=== PATIENT | female | born 1990 | race Caucasian/White ===

== ENCOUNTER 2016-08-23 05:27 | Emergency (ER) | payer OTHER ==
[~2016-08-23] VITALS: Ht 162.6 cm; Wt 67.0 kg
[2016-08-23 05:31] VITALS: TEMP 36.6; Ht 162.6 cm; Wt 67.0 kg
[2016-08-23] MEDS ORDERED: DOXYCYCLINE HYCLATE 100 MG CAP PO STA (05:41)
[2016-08-23 05:50] VITALS: BP 119/80; PULSE 68; O2SAT 95
--- NOTE | 2016-08-23 06:26 | EMERGENCY ROOM VISIT NOTE ---
ED Visit Note First contact with patient: 05:36 CHIEF COMPLAINT: Tick bite HISTORY OF PRESENT ILLNESS: This 25 year old female patient presents to the emergency department after they noticed a tick embedded in her left calf for the past one day. The patient did not try to remove it. It had been on for less than one day. The patient's tetanus shot is reportedly up-to-date. The patient denies any rashes, fevers, chills, or lightheadedness. The patient denies joint tenderness. REVIEW OF SYSTEMS: A 6 system review of systems was completed with positives and pertinent negatives listed in the HPI. ALLERGIES: Latex MEDICATIONS: No chronic medications PMH: Otherwise healthy SOCIAL HISTORY: Lives locally PHYSICAL EXAM: Vital Signs: Reviewed Nurse's notes, vital signs stable. GENERAL : white female, in no acute distress, well-developed, well-nourished. SKIN: There is deer tick embedded in the patient's left calf. There is a small zone of inflammation and eccymosis around the spot where the tick is. The skin is otherwise clear. NEUROLOGICAL: Alert and oriented to person place and time, cooperative. Sensory and motor functions grossly intact. ED COURSE: I examined the patient. A tick twister was used to remove the tick. The whole head was removed. There was not bleeding. The patient tolerated the procedure well. The area was dressed with bacitracin and a bandage. []The patient was given doxycycline 200 mg p.o. for prophylaxis. The patient was discharged home in good condition. Current/Historical Medications No Active Prescriptions or Reported Meds Allergies Coded Allergies: Latex (Verified Allergy, Unknown, rash, 08/23/16) Vital Signs Date Time Temp Pulse Resp B/P Pulse Ox O2 Delivery O2 Flow Rate FiO2 08/23/16 05:50 68 20 119/80 95 08/23/16 05:31 36.6 68 20 119/80 95 Room Air Medications Administered Medications (Trade) Dose Ordered Sig/Azeem Route Start Time Stop Time Status Last Admin Dose Admin Doxycycline Hyclate (Vibramycin Cap) 200 mg NOW STAT PO 08/23/16 05:41 08/23/16 05:42 DC 08/23/16 05:51 200 MG Departure Information Impression Primary Impression: Tick bite Dispostion Home / Self-Care Condition GOOD Prescriptions No Active Prescriptions or Reported Meds Referrals No Doctor, Assigned (PCP) Forms HOME CARE DOCUMENTATION FORM, IMPORTANT VISIT INFORMATION Patient Instructions My [facility] Additional Instructions You were seen and evaluated today on an emergency basis only. This is not a substitute for, or an effort to provide, complete comprehensive medical care. It is not possible to recognize and treat all injuries or illnesses in a single emergency department visit. For this reason it is recommended that you followup with your primary care physician with any ongoing or persistent symptoms. Take doxycycline 200 mg x1 dose after eating a meal today. You are welcome to return to the emergency department anytime with new, worsening, or concerning symptoms.
== END 2016-08-23 05:50 | disposition home or self-care (01) ==
LOC: C.EDB 05:28
DX: S80.862A Insect bite (nonvenomous), left lower leg, initial encounter (principal); W57.XXXA Bitten or stung by nonvenomous insect and other nonvenomous arthropods, initial encounter

== ENCOUNTER 2016-11-16 18:46 | Emergency (ER) | payer OTHER ==
[~2016-11-16] VITALS: Ht 162.6 cm; Wt 66.4 kg
[2016-11-16 18:49] VITALS: TEMP 36.6; Ht 162.6 cm; Wt 66.4 kg
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
[2016-11-16] MEDS ORDERED: MULTTAB58 PO (19:05)
[2016-11-16] MEDS ORDERED: CYAN10005 PO (19:05)
--- NOTE | 2016-11-16 19:24 | DIAGNOSTIC IMAGING REPORT ---
CT SCAN OF THE BRAIN WITHOUT IV CONTRAST CLINICAL HISTORY: Headache. COMPARISON STUDY CT of the brain dated 01/20/2012. TECHNIQUE: Unenhanced axial CT scan of the brain is performed from the vertex to the skull base. Automated dose control exposure was utilized. A dose lowering technique was utilized adhering to the principles of ALARA. CT DOSE: 537.48 mGy.cm FINDINGS: Brain parenchyma: The brain parenchyma is normal in appearance. There is no hemorrhage, mass effect, or evidence of acute territorial ischemia by CT criteria. Thomas-white matter is preserved. No extra-axial fluid collection is seen. Ventricles, sulci, cisterns: Normal in configuration. Intracranial vasculature: The visualized intracranial vasculature at the skull base is normal in appearance. Calvarium: Unremarkable. Sinuses and mastoids: The visualized paranasal sinuses are clear. The mastoid air cells are well pneumatized. Orbits: The bony orbits are grossly intact. IMPRESSION: No acute intracranial abnormality. Electronically signed by: Wilfredo Carter M.D. 11/16/2016 7:23 PM Dictated Date/Time: 11/16/2016 7:21 PM
[2016-11-16 19:25] LABS: URINE APPEARANCE CLEAR (CLEAR); URINE BILIRUBIN NEG (NEG); URINE COLOR YELLOW; URINE NITRITE NEG (NEG); UROBILINOGEN NEG (NEG); ZZUR CULT IF INDIC CLEAN CATCH NO
[2016-11-16 19:33] LABS: MANUAL MICROSCOPIC REQUIRED? NO; REVIEW REQ? NO
--- NOTE | 2016-11-16 19:58 | DIAGNOSTIC IMAGING REPORT ---
L-SPINE MIN 4 VIEWS ROUTINE CLINICAL HISTORY: 25 years-old Female presenting with low back pain, fall Saturday night. TECHNIQUE: Frontal, bilateral oblique, and lateral views of the lumbar spine and coned and lateral view of the lumbosacral junction were obtained. COMPARISON: None. FINDINGS: Vertebral bodies maintain normal height and alignment. Intervertebral disc spaces preserved. No degenerative change. No radiographic evidence of acute fracture or subluxation. 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 No osseous neural foraminal narrowing. Nonobstructive bowel gas pattern. No gross pneumoperitoneum. Lung bases clear. IMPRESSION: No acute osseous injury of the lumbar spine. Electronically signed by: Zeyad Olivares M.D. 11/16/2016 7:57 PM Dictated Date/Time: 11/16/2016 7:55 PM
[2016-11-16] MEDS ORDERED: ACETAMINOPHEN 500 MG TAB PO ONE (20:24)
[2016-11-16 20:26] VITALS: BP 109/61; PULSE 53; O2SAT 100
== END 2016-11-16 20:26 | disposition home or self-care (01) ==
LOC: C.EDB 18:47
DX: F07.81 Postconcussional syndrome (principal); S39.012A Strain of muscle, fascia and tendon of lower back, initial encounter; W03.XXXA Other fall on same level due to collision with another person, initial encounter; W22.8XXA Striking against or struck by other objects, initial encounter; F17.200 Nicotine dependence, unspecified, uncomplicated; Z82.49 Family history of ischemic heart disease and other diseases of the circulatory system

== ENCOUNTER 2021-06-23 07:51 | Inpatient (IN) ==
[2021-06-23] MEDS ORDERED: OXYTOCIN 30 UNITS/500 ML BAG IV PRN (07:55)
[2021-06-23] MEDS ORDERED: PENICILLIN G POTASSIUM 6 MU in DEXTROSE 5% 250 ML IV STA (08:01)
--- NOTE | 2021-06-23 08:02 | History & Physical Report ---
Date of Service June 23, 2021 Assessment & Plan (1) Post-dates : Plan: Cervical ripening with Cervidil Admission and Anticipated Discharge Date Admission Date: June 23, 2021 History of Present Illness Chief Complaint: induction of labor Primary Care Provider: Ki Eagle MD 30 F P0000 at 40. admitted for induction of labor for post-dates. GBS is poitive. Covid is negative. 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 Review of Systems All systems reviewed & are unremarkable except as noted in HPI & below Physical Exam Constitutional: WD/WN, vitals as above comfortable Eyes: PERRL, conjunctivae normal, anicteric sclerae Respiratory: normal respiratory effort, lungs clear to auscultation Cardiovascular: RRR, no murmur, no edema Skin: no rashes, warm and dry Neurologic: patellar DTR's 2+ bilat, sensation intact Psychiatric: A+Ox3, euthymic affect Genitourinary: no vaginal lesions, no adnexal mass normal external appearance OB Exam Abdomen: + fundal height and + vertex Manual OB Exam: + cervical dilation, + cervical effacement 50% and + station high OB Exam Monitor Tracing: + external FHT monitor used, + external uterine monitor used, + category I and + normal FHT variability cervix closed, posterior, firm Code Status & VTE Plan VTE Prophylaxis Plan VTE Prophylaxis will be ordered: No Monitoring External Monitor Cat 1
[2021-06-23] MEDS ORDERED: DINOPROSTONE 10 MG INSERT PV ONE (08:15)
[2021-06-23] MEDS ORDERED: LACTATED RINGER'S 500 ML IV ONE (08:28)
[2021-06-23 08:51] LABS: Hematocrit (blood only) 34.3 % (37-47); Hemoglobin 11.8 g/dL (12.0-16.0); Mean Corpuscular Hemoglobin 31.5 pg (25-34); Mean Corpuscular Hgb Conc 34.4 g/dL (32-36); Mean Corpuscular Volume 91.5 fL (80-100); Mean Platelet Volume 12.5 fL (7.4-10.4); Platelet Count 119 K/uL (130-400); Platelet Estimate Decreased (Normal); RDW Coefficient of Variation 14.4 % (11.5-14.5); RDW Standard Deviation 48.9 fL (36.4-46.3); Red Blood Count 3.75 M/uL (4.2-5.4); White Blood Count 8.22 K/uL (4.8-10.8)
--- NOTE | 2021-06-23 08:55 | Labor Progress Brief Note ---
Date of Service June 23, 2021 Assessment & Plan Admission and Anticipated Discharge Date Admission Date: June 23, 2021 Physical Exam Genitourinary: Cervidil 10 mg placed vaginally Results & Data ([facility]) Vital Signs (Past 12 Hours) Vital Signs Pulse BP 06/23/21 08:12 123 H 120/68
[2021-06-23] MEDS ORDERED: PENICILLIN G POTASSIUM 3 MU in DEXTROSE 5% 100 ML IV PRN (10:58)
[2021-06-23] MEDS ORDERED: BUTORPHANOL TARTRATE 1 MG/ML VIAL IV PRN (18:37)
[2021-06-23] MEDS: miSOPROStoL 50 MCG TAB PO SCH (23:56)
[2021-06-24] MEDS: miSOPROStoL 50 MCG TAB PO SCH ×2 (01:37→05:15)
--- NOTE | 2021-06-24 09:20 | Labor Progress Brief Note ---
Date of Service June 24, 2021 Subjective Patient comfortable in bed at this time, having slight cramping. Was able eat breakfast. No other concerns at this time Assessment & Plan (1) Post-dates : Plan: Continue Cytotec, 25 mcg sublingually every 4 hours Epidural if patient desires Anticipate (2) Positive GBS test: Plan: Will start penicillin G when in active labor, prior to AROM, or at the start of spontaneous rupture of membranes Plan: Cervical ripening with Cervidil Admission and Anticipated Discharge Date Admission Date: June 23, 2021 Physical Exam Physical Exam: heart tracing: Baseline 130, moderate variability, positive accelerations no decelerations, category 1 tracing Tocometer: Irritable Cervix: 05/14/3 soft and posterior Results & Data ([facility]) Vital Signs (Past 12 Hours) Vital Signs Temp Pulse Resp BP 06/24/21 08:26 36.5 C 18 06/24/21 08:25 83 125/66 06/24/21 03:20 36.7 C 81 18 108/53 L 06/23/21 23:06 36.8 C 81 18 115/54 L
[2021-06-24] MEDS ORDERED: miSOPROStoL 50 MCG TAB SL SCH (09:30)
[2021-06-24] MEDS ORDERED: miSOPROStoL 25 MCG TAB SL SCH (09:45)
[2021-06-24] MEDS: LACTATED RINGER'S 1,000 ML IV PRN ×2 (11:49→15:57)
[2021-06-24] MEDS ORDERED: OXYTOCIN 30 UNITS/500 ML BAG IV PRN (13:35)
--- NOTE | 2021-06-24 13:38 | Labor Progress Brief Note ---
Date of Service June 24, 2021 Subjective Patient comfortable in bed at this time, having slight cramping. No new complaints Assessment & Plan (1) Post-dates : Plan: Start pit for augmentation Epidural if patient desires Anticipate (2) Positive GBS test: Plan: Will start penicillin G when in active labor, prior to AROM, or at the start of spontaneous rupture of membranes Admission and Anticipated Discharge Date Admission Date: June 23, 2021 Physical Exam Physical Exam: heart tracing: Baseline 125, moderate variability, positive accelerations no decelerations, category 1 tracing Tocometer: Irritable Cervix: 40/-3 soft and posterior, membranes swept Results & Data ([facility]) Vital Signs (Past 12 Hours) Vital Signs Temp Pulse Resp BP 06/24/21 11:46 36.6 C 20 06/24/21 11:44 80 117/78 06/24/21 08:26 36.5 C 18 06/24/21 08:25 83 125/66 06/24/21 03:20 36.7 C 81 18 108/53 L
[2021-06-24] MEDS ORDERED: PENICILLIN G POTASSIUM 6 MU in DEXTROSE 5% 250 ML IV STA (17:38)
--- NOTE | 2021-06-24 17:53 | Labor Progress Brief Note ---
Date of Service June 24, 2021 Subjective Patient uncomfortable with contractions, received 1 dose of Stadol, declines epidural at this time Assessment & Plan (1) Post-dates : Plan: Continue oxytocin for augmentation Epidural if patient desires Anticipate (2) Positive GBS test: Plan: Will start penicillin G when in active labor, prior to AROM, or at the start of spontaneous rupture of membranes Admission and Anticipated Discharge Date Admission Date: June 23, 2021 Physical Exam Physical Exam: heart tracing: Baseline 125, moderate variability, positive accelerations no decelerations, category 1 tracing Tocometer: q2-3 min pit at 10 Cervix: deferred Results & Data ([facility]) Vital Signs (Past 12 Hours) Vital Signs Temp Pulse Resp BP 06/24/21 17:06 68 119/69 06/24/21 15:55 77 20 118/66 06/24/21 15:00 36.6 C 85 20 127/60 06/24/21 13:55 96 H 117/75 06/24/21 11:46 36.6 C 20 06/24/21 11:44 80 117/78 06/24/21 08:26 36.5 C 18 06/24/21 08:25 83 125/66
[2021-06-24] MEDS ORDERED: ePHEDrine sulfate 50 MG/ML AMP ONE ×2 (19:06→21:49)
[2021-06-24] MEDS ORDERED: SODIUM CHLORIDE 0.9% INJ 10 ML VIAL ONE (19:06)
[2021-06-24] MEDS ORDERED: fentaNYL citrate 100 MCG/2 ML VIAL ONE (19:07)
[2021-06-24] MEDS ORDERED: BUPIVACAINE 0.25% 30 ML VIAL ONE (19:07)
[2021-06-24] MEDS ORDERED: fentaNYL 2MCG/ML ROPIVACAINE 1.25MG/ML 100 ML BAG EPI ONE (19:07)
[2021-06-24] MEDS ORDERED: ONDANSETRON 4 MG OD TAB PO PRN (19:39)
--- NOTE | 2021-06-24 20:21 | Anesthesiology Consultation ---
Date of Service June 24, 2021 Assessment & Plan Chart Review Chart Review: Acceptable Risk for Labor Epidural Consults Requested none History Height/Weight Height: 5 ft 4 in Weight: 100.698 kg Allergies Allergy/AdvReac Type Severity Reaction Status Date / Time latex Allergy Unknown rash Verified 06/23/21 08:42 Medications Home Medications Medication Instructions Recorded Confirmed Last Taken iron,carbonyl 65 mg-vitamin C 125 1 tab PO BID 06/23/21 06/23/21 06/23/21 06:00 mg tablet,delayed release (Vitron-C) prenat.vits,pau,ryf-vaft-rvldq 1 tab PO DAILY 06/23/21 06/23/21 06/23/21 06:00 Active Medications Generic Name Dose Route Start Last Admin Trade Name Wil PRN Reason Stop Dose Admin Butorphanol Tartrate 1 mg 06/23/21 18:37 06/24/21 17:13 Butorphanol Tartrate 1 Mg/Ml Vial IV 07/23/21 18:36 1 mg Q2R PRN Administration Pain Lactated Ringer's 1,000 mls @ 125 mls/hr 06/23/21 07:55 06/24/21 19:13 Lr IV 06/25/21 07:54 125 mls/hr .Q8H PRN Infusion L&D Protocol Protocol Oxytocin 30 units in 500 mls @ 14 mls/hr 06/24/21 13:35 06/24/21 19:03 Pitocin IV 06/26/21 13:34 0.84 units/hr .Q24H PRN 14 mls/hr Labor Induction/Augmentation Titration Protocol 0.84 UNITS/HR Past Medical History Medical History No pertinent past medical history Social History Smoking Status: Current some day smoker tobacco type: cigarettes Smoking cigarettes per day: 1 Hx Alcohol Use: No Hx Substance Use: No Physical Exam Vital Signs Last Vital Signs Temp 36.6 C 06/24/21 19:12 Pulse 79 06/24/21 20:18 Resp 20 06/24/21 19:12 BP 104/51 L 06/24/21 20:14 Pulse Ox 100 06/24/21 20:18 Testing Laboratory Results 06/23/21 08:12 Blood Type O Positive 06/23/21 08:12 Antibody Screen NEGATIVE 06/23/21 08:12
[2021-06-24] MEDS ORDERED: NALOXONE HCL 0.4 MG/1 ML VIAL/CARP IV PRN ×2 (20:22→22:08)
[2021-06-24] MEDS ORDERED: ePHEDrine sulfate 50 MG/ML AMP IV PRN ×2 (20:22→22:08)
[2021-06-24] MEDS ORDERED: diphenhydrAMINE 50 MG/ML VIAL IV PRN ×2 (20:22→22:08)
[2021-06-24] MEDS ORDERED: NALOXONE HCL 1 MG in SODIUM CHLORIDE 0.9% 1000ML 1,000 ML IV PRN ×2 (20:22→22:08)
[2021-06-24] MEDS ORDERED: fentaNYL 2MCG/ML ROPIVACAINE 1.25MG/ML 100 ML BAG EPI PRN (20:22)
[2021-06-24] MEDS ORDERED: NALBUPHINE HCL INJ 10 MG/ML AMP IV PRN ×2 (20:22→22:08)
--- NOTE | 2021-06-24 20:28 | Labor Progress Brief Note ---
Date of Service June 24, 2021 Subjective Patient comfortable with epidural Assessment & Plan (1) Post-dates : Plan: Stop pit Anticipate (2) Positive GBS test: Plan: Will start penicillin G when in active labor, prior to AROM, or at the start of spontaneous rupture of membranes Plan: Continue IV pen g Admission and Anticipated Discharge Date Admission Date: June 23, 2021 Physical Exam Physical Exam: heart tracing: Baseline 140, moderate variability, no accelerations decelerations approx 2 min, category 2 tracing Tocometer: q2-3 min on pit Cervix: 2.5/60/-3 AROM with blood tinged, no cord felt. IUPC placed, no complications Results & Data ([facility]) Vital Signs (Past 12 Hours) Vital Signs Temp Pulse Resp BP Pulse Ox 06/24/21 20:24 80 104/57 L 06/24/21 20:23 81 99 06/24/21 20:21 75 116/61 06/24/21 20:18 79 100 06/24/21 20:15 85 92 06/24/21 20:14 90 104/51 L 06/24/21 20:13 81 99 06/24/21 20:12 80 103/57 L 06/24/21 20:10 81 105/58 L 06/24/21 20:08 82 107/59 L 100 06/24/21 20:06 81 116/56 L 06/24/21 20:04 83 120/69 06/24/21 20:03 81 99 06/24/21 19:58 91 H 100 06/24/21 19:53 109 H 99 06/24/21 19:48 99 H 96 06/24/21 19:43 75 95 06/24/21 19:38 78 97 06/24/21 19:33 69 97 06/24/21 19:28 71 98 06/24/21 19:23 80 97 06/24/21 19:18 76 97 06/24/21 19:13 71 96 06/24/21 19:12 36.6 C 73 20 124/72 06/24/21 18:03 74 112/61 06/24/21 17:06 68 119/69 06/24/21 15:55 77 20 118/66 06/24/21 15:00 36.6 C 85 20 127/60 06/24/21 13:55 96 H 117/75 06/24/21 11:46 36.6 C 20 06/24/21 11:44 80 117/78
[2021-06-24] MEDS ORDERED: CITRIC ACID/SODIUM CITRATE 15 ML UDC ONE (20:41)
[2021-06-24] MEDS ORDERED: ceFAZolin 2000MG 2,000 MG/15 ML SYR IV ONE (20:45)
[2021-06-24] MEDS ORDERED: AZITHROMYCIN 500 MG in DEXTROSE 5% 250 ML IV ONE (20:50)
[2021-06-24] MEDS ORDERED: ONDANSETRON INJ 2 MG/ML 2 ML VIAL ONE (21:48)
[2021-06-24] MEDS ORDERED: OXYTOCIN 10 UNITS/ML 10ML VIAL ONE (21:48)
[2021-06-24] MEDS ORDERED: LIDOCAINE 2%/EPINEPHRINE 1:200,000 20 ML SDV ONE (21:48)
[2021-06-24] MEDS ORDERED: PHENYLEPHRINE 100MCG/ML 5ML SYR ONE (21:49)
[2021-06-24] MEDS ORDERED: MoRPHine SULFATE PF 1 MG/ML 10 ML AMP/VIAL ONE (21:50)
--- NOTE | 2021-06-24 21:53 | Post Operative Brief Note ---
Immediate Post Op Note v1 Date of Surgery June 24, 2021 Pre & Post Diagnosis IOL for post dates GBS positive NRFHT I identified the patient and participated in the time-out.: Yes Procedure Primary cesaeran section Surgeon Keya Martínez MD, PhD Automatic Line Set Up Mechanic Noble Gupta MD Estimated Blood Loss 800 Findings Consistent with Post-Op Diagnosis A liveborn female at 2124 with tight arm cord on right arm, APGARs 8/9 Fluids 1000 mls Drains Mancilla Catheter Anesthesia Type Labor Epidural Complications None Disposition Accompanied Patient To Recovery: Yes Disposition: Recovery Room
[2021-06-24] MEDS ORDERED: SENNA 8.6 MG TAB PO PRN (21:54)
[2021-06-24] MEDS ORDERED: HYDROCORTISONE ACETATE 25 MG SUPP PR PRN (21:54)
[2021-06-24] MEDS ORDERED: MAGNESIUM HYDROXIDE SUSP 30 ML UDC PO PRN (21:54)
[2021-06-24] MEDS ORDERED: BENZOCAINE 20% AER SPR 82.5 GM CAN EXT PRN (21:54)
--- NOTE | 2021-06-24 21:54 | Discharge Summary ---
Date of Service June 24, 2021 Admission HPI Per Admitting Provider 30 year old at 40 weeks admitted for induction of labor for post-dates. GBS is positive. Covid is negative. Admission Exam (Per Admitting) Constitutional WD/WN, vitals as above Respiratory normal respiratory effort, lungs clear to auscultation Cardiovascular RRR, no murmur, no edema Gastrointestinal (Abdomen) normal bowel sounds, soft, nontender, no hepatosplenomegaly Discharge Data Consultations 06/23/21 07:55 Consult Anesthesiology Stat Procedures Performed Primary LTCS for NRFHT on 06/24/2021 Hospital Course (1) Post-dates : NRFHT, stat C section (2) Positive GBS test: Will start penicillin G when in active labor, prior to AROM, or at the start of spontaneous rupture of membranes Continue IV pen g
[2021-06-24] MEDS ORDERED: OXYTOCIN 30 UNITS in LACTATED RINGER'S 1,000 ML IV SCH (22:00)
[2021-06-24] MEDS ORDERED: LACTATED RINGER'S 1,000 ML IV SCH (22:00)
[2021-06-24] MEDS ORDERED: ONDANSETRON INJ 2 MG/ML 2 ML VIAL IV PRN (22:08)
[2021-06-24] MEDS ORDERED: METOCLOPRAMIDE HCL 10 MG in SODIUM CHLORIDE 0.9% 50 ML IV PRN (22:08)
[2021-06-24] MEDS ORDERED: MoRPHine SULFATE PF 1 MG/ML 10 ML AMP/VIAL INT SPINAL ONE (22:08)
[2021-06-24] MEDS ORDERED: HYDROmorphone INJ 0.5 MG/0.5 ML SYR IV PRN (22:08)
[2021-06-24] MEDS ORDERED: PROMETHAZINE HCL 12.5 MG in SODIUM CHLORIDE 0.9% 50 ML IV PRN (22:08)
[2021-06-24] MEDS ORDERED: LACTATED RINGER'S 500 ML IV PRN (22:08)
[2021-06-24] MEDS ORDERED: NALOXONE HCL 0.08 MG in SYRINGE 1.8 ML IV PRN (22:08)
[2021-06-24] MEDS ORDERED: NO NARCOTICS OR SEDATIVES SCH (22:15)
[2021-06-24] MEDS ORDERED: DC INTRASPINAL MORPHINE SCH (22:15)
[2021-06-24] MEDS ORDERED: SODIUM CHLORIDE 0.9% 1000ML 1,000 ML IV SCH (22:15)
--- NOTE | 2021-06-24 22:15 | Operative Report ---
Post Operative Report Pre & Post Diagnosis 1. 30 year old at 40 3/7 weeks 2. NRFHT 3. GBS positive I identified the patient and participated in the time-out.: Yes Procedure Primary section Surgeon Keya Martínez MD, PhD Electrician'S Helper Noble Gupta MD Estimated Blood Loss 800 Findings Consistent with Post-Op Diagnosis A liveborn female born 2[birth year] with APGARs 8/9 with tight cord wrapped around right arm. Weight 3037g. Cord pH could not be obtained. Fluids 1000 mls Specimens Placenta-hold Drains Mancilla Anesthesia Type Labor Epidural Complications None Disposition Accompanied Patient To Recovery: Yes Disposition: Recovery Room Indications NRFHT Description of Procedure CD Delivery Note History synopsis: Patient is 30 year old who presents at 40 weeks and 2 days for induction of labor for postdates. She received a Cervidil for cervical ripening, and 2 doses of misoprostol 50 mcg p.o. In the morning she was rechecked and found to be 1 cm dilated, she was kamron too much for another dose of Cytotec at that time. Later she was rechecked and found to be almost 2 cm, and oxytocin was started. Patient remained category 1 tracing while being on the oxytocin. When contractions became more painful she received an epidural for pain control. After the epidural she was noted to have a prolonged deceleration for approximately 3 minutes, she was checked and found to be 2-1/2 cm, artificial rupture of membranes was performed and noted blood-tinged fluid, IUPC was placed. Noted recurrent late decelerations, that were unable to be covered with maternal repositioning, oxygenation and fluids. She was counseled for a C- section. At that time oxytocin had been discontinued, and returned to a category 2 tracing. Procedure Summary: section was recommended. Risks, benefits and alternatives were discussed including but not limited to infection, bleeding that may require blood products or hysterectomy for life saving measures, injury to surrounding organs including but not limited to bowel, bladder, ureters, tubes and ovaries and/or the baby. Should injury occur it could require longer/additional surgery to repair. Patient was also counselled about risk of DVT/PE, and injury to during delivery. The patient stated understanding and desired to proceed. All questions were answered posed by patient. Prior to being taken to the OR, 2 grams of cefazolin IV 500 mg of azithromycin IV was administered. The patient was taken to the operating room where regional anesthesia was found to be adequate. She was then prepared and draped in the usual sterile fashion in the dorsal supine position with a leftward tilt displacing the uterus. Mancilla was draining to gravity. SCDs were on bilateral lower extremities. A pfannenstiel skin incision was then made with the scalpel and carried through to the underlying layer of fascia. The fascia was incised in the midline and the incision extended laterally with the Bauman scissors. The superior aspect of the facial incision was then grasped with the Kelly clamps, elevated and the underlying rectus muscles dissected off bluntly. Attention was then turned to the inferior aspect of this incision which in a similar fashion was grasped, elevated with the Kelly clamps and the rectus muscle dissected off bluntly. The rectus muscles were in the midline. The peritoneum identified, grasped with the pick-ups and entered sharply with the Metzenbaum scissors. The peritoneal incision was then extended superiorly and inferiorly with good visualization of the bladder. The bladder blade was inserted and the vesicouterine peritoneum was identified, grasped with the pick-ups, and entered sharply with Metzenbaum scissors. This incision was then extended laterally and the bladder flap created digitally and the bladder blade was reinserted. The lower uterine segment was identified and incised in a transverse fashion with the scalpel. The uterine incision was then extended bluntly laterally. Artificial rupture of membranes demonstrated clear fluid. The bladder blade was removed. The fetus was in cephalic presentation. The infant's head delivered atraumatically. The anterior shoulders were delivered followed by the posterior shoulders then the remainder of the body. The infant's mouth and nose were bulb suctioned. The umbilical cord was clamped times two and cut. The was handed off to the awaiting pediatric staff. A female was delivered weighing 3037 g with APGARS of 8 at 1 minute and 9 at 5 minutes. The was taken to the recovery room for transition. Cord blood was obtained, was unable to obtain cord blood gas. The placenta was removed with gentle traction. 30 units of oxytocin were added to IVF and allowed to run freely. The uterus was exteriorized and cleared of all clots and debris. The uterine incision was inspected and found to be without any extensions and was repaired with 0 Vicryl in a running, locked fashion. A second imbricating layer was performed. Upon inspection, the repaired hysterotomy was found to be hemostatic. The uterus was firm and returned to the abdomen. The gutters were cleared of all clots and debris. The peritoneum was closed with 2-0 Vicryl in a running fashion. The fascia was reapproximated with 0 Vicryl in a running fashion. The subcutaneous layer was closed with 2-0 Vicryl in a running fashion The skin was closed in a subcuticular fashion with 4-0 vicryl. Dermabond and pressure bandage was applied over incision. The patient tolerated the procedure well. Sponge, lap and needle counts were correct x4. The patient was taken to the recovery room in stable condition. I attest to the content of the Intraoperative Record and any orders documented therein. Any exceptions are noted below.
--- NOTE | 2021-06-24 22:31 | Anesthesia Procedure Note ---
Date of Service June 24, 2021 Anesthesia Post Epidural Note Vital Signs Vital Signs: Temp Pulse Resp BP Pulse Ox 36.6 C 91 H 18 136/63 99 06/24/21 22:10 06/24/21 22:28 06/24/21 22:20 06/24/21 22:26 06/24/21 22:28 Pain Intensity Lower Abdomen: Pain Intensity: 2 Notes Mental Status: alert / awake / arousable Nausea / Vomiting: adequately controlled Pain: adequately controlled Airway Patency, RR, SpO2: stable & adequate BP & HR: stable & adequate Hydration State: stable & adequate Neuraxial Anesthesia: was administered and sensory block is resolving Anesthetic Complications: no major complications apparent and Pt Satisfied with anesthetic care Epidural: Removed without complications and With tip intact
--- NOTE | 2021-06-24 22:32 | Anesthesiology Progress Note ---
Date of Service June 24, 2021 Anesthesia Post Procedure Vital Signs Vital Signs: Temp Pulse Resp BP Pulse Ox 06/24/21 22:30 18 06/24/21 22:28 91 H 99 06/24/21 22:26 96 H 136/63 06/24/21 22:25 96 H 166/99 H 06/24/21 22:23 90 98 06/24/21 22:20 18 06/24/21 22:18 93 H 97 06/24/21 22:13 85 96 06/24/21 22:11 78 103/51 L 06/24/21 22:10 36.6 C 18 06/24/21 22:08 85 97 06/24/21 22:04 82 94 06/24/21 22:03 83 113/59 L 94 06/24/21 20:58 92 H 114/60 100 06/24/21 20:54 89 115/64 06/24/21 20:53 86 100 06/24/21 20:52 92 H 110/57 L 06/24/21 20:48 80 122/58 L 100 06/24/21 20:44 70 117/57 L 06/24/21 20:43 75 100 06/24/21 20:39 81 111/65 06/24/21 20:38 82 100 06/24/21 20:34 85 125/73 06/24/21 20:33 82 100 06/24/21 20:29 87 124/65 06/24/21 20:28 81 100 06/24/21 20:24 80 104/57 L 06/24/21 20:23 81 99 06/24/21 20:21 75 116/61 06/24/21 20:18 79 100 06/24/21 20:15 85 92 06/24/21 20:14 90 104/51 L 06/24/21 20:13 81 99 06/24/21 20:12 80 103/57 L 06/24/21 20:10 81 105/58 L 06/24/21 20:08 82 107/59 L 100 06/24/21 20:06 81 116/56 L 06/24/21 20:04 83 120/69 06/24/21 20:03 81 99 06/24/21 19:58 91 H 100 06/24/21 19:53 109 H 99 06/24/21 19:48 99 H 96 03/02/22 19:43 75 95 06/24/21 19:38 78 97 06/24/21 19:33 69 97 06/24/21 19:28 71 98 06/24/21 19:23 80 97 06/24/21 19:18 76 97 06/24/21 19:13 71 96 06/24/21 19:12 36.6 C 73 20 124/72 06/24/21 18:03 74 112/61 06/24/21 17:06 68 119/69 06/24/21 15:55 77 20 118/66 06/24/21 15:00 36.6 C 85 20 127/60 06/24/21 13:55 96 H 117/75 06/24/21 11:46 36.6 C 20 06/24/21 11:44 80 117/78 06/24/21 08:26 36.5 C 18 06/24/21 08:25 83 125/66 06/24/21 03:20 36.7 C 81 18 108/53 L 06/23/21 23:06 36.8 C 81 18 115/54 L Pain Intensity Lower Abdomen: Pain Intensity: 2 Transfer of Care Handoff Completed per policy Notes Mental Status: alert / awake / arousable and participated in evaluation Patient Amnestic to Procedure: Yes Nausea / Vomiting: adequately controlled Pain: adequately controlled Airway Patency, RR, SpO2: stable & adequate BP & HR: stable & adequate Hydration State: stable & adequate Neuraxial Anesthesia: was administered and sensory block is resolving Anesthetic Complications: no major complications apparent
[2021-06-24] MEDS: KETOROLAC 30 MG/ML VIAL IV PRN (22:55)
[2021-06-25 06:42] LABS: Hematocrit (blood only) 32.5 % (37-47); Hemoglobin 10.9 g/dL (12.0-16.0); Mean Corpuscular Hemoglobin 30.7 pg (25-34); Mean Corpuscular Hgb Conc 33.5 g/dL (32-36); Mean Corpuscular Volume 91.5 fL (80-100); Mean Platelet Volume 12.6 fL (7.4-10.4); Platelet Count 113 K/uL (130-400); RDW Coefficient of Variation 14.3 % (11.5-14.5); RDW Standard Deviation 48.3 fL (36.4-46.3); Red Blood Count 3.55 M/uL (4.2-5.4); White Blood Count 14.79 K/uL (4.8-10.8)
[2021-06-25 07:08] LABS: Basophils # (auto) 0.01 K/uL (0-0.2); Basophils % (auto) 0.1 %; Eosinophils # (auto) 0.01 K/uL (0-0.5); Eosinophils % (auto) 0.1 %; Immature Granulocytes # (auto) 0.02 K/uL (0.00-0.02); Immature Granulocytes % (auto) 0.1 %; Lymphocytes # (auto) 1.13 K/uL (1.2-3.4); Lymphocytes % (auto) 7.6 %; Monocytes # (auto) 0.84 K/uL (0.11-0.59); Monocytes % (auto) 5.7 %; Neutrophils # (auto) 12.78 K/uL (1.4-6.5); Neutrophils % (auto) 86.4 %
[2021-06-25] MEDS: KETOROLAC 30 MG/ML VIAL IV PRN (07:44)
[2021-06-25] MEDS: PRENATAL VITAMIN 1 TAB PO SCH (11:16)
[2021-06-25] MEDS: DOCUSATE SODIUM 100 MG CAP PO SCH ×2 (11:16→20:37)
[2021-06-25] MEDS: FERROUS SULFATE 325 MG TAB PO SCH (11:16)
[2021-06-25] MEDS: SIMETHICONE 80 MG CHEW PO SCH ×3 (11:16→20:38)
[2021-06-25] MEDS ORDERED: ONDANSETRON INJ 2 MG/ML 2 ML VIAL IV PRN (16:10)
[2021-06-25] MEDS ORDERED: diphenhydrAMINE 50 MG/ML VIAL IV PRN (16:10)
[2021-06-25] MEDS ORDERED: diphenhydrAMINE Capsule 25 MG CAP PO PRN (16:10)
[2021-06-25] MEDS ORDERED: PROMETHAZINE HCL 25 MG in SODIUM CHLORIDE 0.9% 50 ML IV PRN (16:10)
[2021-06-25] MEDS: IBUPROFEN 600 MG TAB PO PRN ×2 (16:32→21:38)
[2021-06-25] MEDS: oxyCODONE/ACETAMINOPHEN 5mg/325mg TAB PO PRN ×2 (16:33→21:39)
[2021-06-25] MEDS ORDERED: bisacodyL 5 MG TABEC PO SCH (20:00)
[2021-06-26] MEDS: IBUPROFEN 600 MG TAB PO PRN ×4 (04:33→19:56)
[2021-06-26] MEDS: oxyCODONE/ACETAMINOPHEN 5mg/325mg TAB PO PRN ×4 (04:33→19:57)
[2021-06-26 06:28] LABS: Hematocrit (blood only) 28.3 % (37-47); Hemoglobin 9.8 g/dL (12.0-16.0)
--- NOTE | 2021-06-26 07:48 | Obstetrical Progress Note ---
Date of Service June 26, 2021 Assessment & Plan Admission and Anticipated Discharge Date Admission Date: June 23, 2021 Subjective Patient is seen and examined. She feels well, no complaints. Pain is under control with oral meds. Ambulating without dizziness Voiding without difficulty Tolerating regular diet with out N&V Flatus + BM neg Bleeding is minimal No fever/ chills/ CP/ SOB/ N&V/ Leg pain Breast and bottle feeding without problems Vital Signs Temp Pulse Resp BP Pulse Ox 06/26/21 04:30 36.3 C L 96 H 18 102/67 96 06/25/21 23:30 36.4 C L 96 H 18 99/65 L 95 06/25/21 20:30 36.7 C 97 H 18 104/66 97 06/25/21 16:30 36.9 C 100 H 18 111/70 99 06/25/21 15:00 18 99 06/25/21 14:00 18 97 06/25/21 13:00 20 98 06/25/21 12:00 20 97 06/25/21 11:00 36.6 C 80 20 106/69 98 06/25/21 10:30 20 97 06/25/21 09:30 18 96 06/25/21 08:30 20 98 Lab Results 06/23/21 06/23/21 06/25/21 Range/Units 08:12 08:12 06:06 WBC 8.22 14.79 H (4.8-10.8) K/uL RBC 3.75 L 3.55 L (4.2-5.4) M/uL Hgb 11.8 L 10.9 L (12.0-16.0) g/dL Hct 34.3 L 32.5 L (37-47) % MCV 91.5 91.5 (80-100) fL MCH 31.5 30.7 (25-34) pg MCHC 34.4 33.5 (32-36) g/dL RDW Std Deviation 48.9 H 48.3 H (36.4-46.3) fL RDW Coeff of Catherine 14.4 14.3 (11.5-14.5) % Plt Count 119 L 113 L (130-400) K/uL MPV 12.5 H 12.6 H (7.4-10.4) fL Immature Gran % (Auto) 0.1 % Neut % (Auto) 86.4 % Lymph % (Auto) 7.6 % [place] % (Auto) 5.7 % Eos % (Auto) 0.1 % Baso % (Auto) 0.1 % Neut # (Auto) 12.78 H (1.4-6.5) K/uL Lymph # (Auto) 1.13 L (1.2-3.4) K/uL [place] # (Auto) 0.84 H (0.11-0.59) K/uL Eos # (Auto) 0.01 (0-0.5) K/uL Baso # (Auto) 0.01 (0-0.2) K/uL Immature Gran # (Auto) 0.02 (0.00-0.02) K/uL Platelet Estimate Decreased L (Normal) Blood Type O Positive Antibody Screen NEGATIVE 06/26/21 Range/Units 06:07 WBC (4.8-10.8) K/uL RBC (4.2-5.4) M/uL Hgb 9.8 L (12.0-16.0) g/dL Hct 28.3 L (37-47) % MCV (80-100) fL MCH (25-34) pg MCHC (32-36) g/dL RDW Std Deviation (36.4-46.3) fL RDW Coeff of Catherine (11.5-14.5) % Plt Count (130-400) K/uL MPV (7.4-10.4) fL Immature Gran % (Auto) % Neut % (Auto) % Lymph % (Auto) % [place] % (Auto) % Eos % (Auto) % Baso % (Auto) % Neut # (Auto) (1.4-6.5) K/uL Lymph # (Auto) (1.2-3.4) K/uL [place] # (Auto) (0.11-0.59) K/uL Eos # (Auto) (0-0.5) K/uL Baso # (Auto) (0-0.2) K/uL Immature Gran # (Auto) (0.00-0.02) K/uL Platelet Estimate (Normal) Blood Type Antibody Screen PE: General: Alert, orientedx3, NAD CVS: S1S2 RRR Lungs; CTAB Abd: soft, NT, ND, BS+, fundus firm, below Umbilicus Incision: Clean, dry, intact Perineum intact, Lochia rubra minimal Ext; NT, no edema AP: 30 yo s/p C Section, pod# 2 VSS Afebrile doing well Desires d/c tonight Continue routine postop care Encourage ambulation, PO intake All questions were answered D/C home , f/u in office Results & Data ([facility]) Vital Signs (Past 12 Hours) Vital Signs Temp Pulse Resp BP Pulse Ox 06/26/21 04:30 36.3 C L 96 H 18 102/67 96 06/25/21 23:30 36.4 C L 96 H 18 99/65 L 95 06/25/21 20:30 36.7 C 97 H 18 104/66 97
[2021-06-26] MEDS: DOCUSATE SODIUM 100 MG CAP PO SCH ×2 (07:58→19:57)
[2021-06-26] MEDS: SIMETHICONE 80 MG CHEW PO SCH ×4 (07:58→19:56)
[2021-06-26] MEDS: PRENATAL VITAMIN 1 TAB PO SCH (07:58)
[2021-06-26] MEDS: FERROUS SULFATE 325 MG TAB PO SCH (07:58)
[2021-06-26] MEDS ORDERED: bisacodyL 10 MG SUPP PR PRN (21:54)
== END 2021-06-26 22:30 | disposition home or self-care (01) | DRG 788 ==
LOC: 4S1 07:51 → 4S2 06-25 01:04

== ENCOUNTER 2024-04-13 05:31 | Inpatient (IN) ==
--- NOTE | 2024-04-06 13:41 | Anesthesiology Consultation ---
Date of Service April 06, 2024 Assessment & Plan (1) Encounter for pre-operative examination: - Per power wheelchair mechanic on 04/06/24: No known infectious disease contacts, current infectious disease symptoms in past 10 days or COVID positive test result in the past 30 days. Chart Review Chart Review: data entry specialist initiated History Surgery Operation Date: 04/13/24 07:30 Proposed Procedures p Repeat Section in LD - Issac Gupta MD Height/Weight Height: 5 ft 4 in Weight: 102.058 kg Allergies Allergy/AdvReac Type Severity Reaction Status Date / Time latex Allergy Unknown rash Verified 04/06/24 13:14 Medications Home Medications Medication Instructions Recorded Confirmed Last Taken iron,carbonyl 65 mg-vitamin C 125 1 tab PO BID #60 tabs 06/26/21 04/06/24 Unknown mg tablet,delayed release (Vitron-C) vits no.124-ferrous fum 1 tab PO DAILY 04/06/24 04/06/24 Unknown 27 mg iron-folic acid 800 mcg tablet ( Vitamin) Past Medical History Medical History (Updated 04/06/24 @ 13:39 by Alisa Enriquez PA-C) History of anemia "told her blood count was a little low" History of COVID-19 06/2020 and 11/2023, no residual symptoms Nausea and vomiting after administration of anesthetic agent as a child Postconcussive syndrome pt stated she was unsure about this, but does know that she had gotten a concussion from a fall ~age 23, but has no residual effects from it Past Surgical History Surgical History History of surgery on arm cyst removal, as a child Hx of section 2021 Hx of LASIK Hx of tonsillectomy age 14, admitted for 3 days after for bleeding Social History Smoking Status: Former smoker tobacco type: cigarettes Smoking cigarettes per day: 1 Do You Dip or Chew Tobacco: No Smoking End Date: 2022 Hx Alcohol Use: No Hx Substance Use: No substance use type: does not use
[2024-04-13 06:28] LABS: Hematocrit (blood only) 33.1 % (37.0-47.0); Hemoglobin 11.5 g/dl (12.0-16.0); Mean Corpuscular Hgb Conc 34.7 g/dL (32.0-36.0); Mean Corpuscular Volume 89.2 fL (80.0-100.0); Mean Platelet Volume 11.7 fL (9.4-12.4); Platelet Count 113 K/uL (130-400); RDW Coefficient of Variation 13.8 % (11.5-14.5); RDW Standard Deviation 44.8 fL (36.4-46.3); Red Blood Count 3.71 M/uL (4.20-5.40); White Blood Count 9.79 K/ul (4.8-10.8)
[2024-04-13] MEDS ORDERED: SODIUM CHLORIDE 0.9% 50 ML IV PRN (06:41)
[2024-04-13] MEDS ORDERED: SODIUM CHLORIDE 0.9% 100 ML IV PRN (06:41)
[2024-04-13] MEDS ORDERED: ONDANSETRON INJ 2 MG/ML 2 ML VIAL ONE (06:42)
[2024-04-13] MEDS ORDERED: MoRPHine SULFATE PF 1 MG/ML 10 ML AMP/VIAL ONE (06:42)
[2024-04-13] MEDS ORDERED: DEXAMETHASONE SOD INJ 4 MG/ML VIAL ONE (06:42)
[2024-04-13] MEDS ORDERED: fentaNYL citrate PF 100 MCG/2 ML VIAL ONE (06:42)
[2024-04-13] MEDS ORDERED: OXYTOCIN 10 UNITS/ML VIAL ONE (06:42)
[2024-04-13] MEDS: ACETAMINOPHEN 500 MG TAB PO SCH (06:43)
[2024-04-13] MEDS ORDERED: PHENYLEPHRINE HCL 25 MG/250 ML NSS IV ONE (06:43)
[2024-04-13] MEDS ORDERED: SODIUM CHLORIDE 0.9% 1,000 ML IV SCH ×2 (06:45→09:30)
[2024-04-13] MEDS: SODIUM CHLORIDE 0.9% 1,000 ML IV SCH (06:45)
[2024-04-13] MEDS ORDERED: NALBUPHINE HCL INJ 10 MG/ML AMP IV PRN (07:06)
[2024-04-13] MEDS ORDERED: ONDANSETRON INJ 2 MG/ML 2 ML VIAL IV PRN ×2 (07:06→09:30)
[2024-04-13] MEDS ORDERED: NALOXONE HCL 0.08 MG in SYRINGE 1.8 ML IV PRN (07:06)
[2024-04-13] MEDS ORDERED: MoRPHine SULFATE PF 1 MG/ML 10 ML AMP/VIAL INT SPINAL ONE (07:06)
[2024-04-13] MEDS ORDERED: diphenhydrAMINE 50 MG/ML VIAL IV PRN ×2 (07:06→09:30)
[2024-04-13] MEDS ORDERED: NALOXONE HCL 1 MG in SODIUM CHLORIDE 0.9% 1,000 ML IV PRN (07:06)
[2024-04-13] MEDS ORDERED: HYDROmorphone INJ 0.5 MG/0.5 ML SYR IV PRN ×2 (07:06→09:30)
[2024-04-13] MEDS ORDERED: MoRPHine SULFATE 2 MG/ML CARP IV PRN (07:06)
[2024-04-13] MEDS ORDERED: NALOXONE HCL 0.4 MG/1 ML VIAL/CARP IV PRN (07:06)
[2024-04-13] MEDS ORDERED: ePHEDrine sulfate 50 MG/ML AMP IV PRN (07:06)
[2024-04-13] MEDS: ceFAZolin 2000MG 2,000 MG/15 ML SYR IV SCH (07:12)
[2024-04-13] MEDS ORDERED: DC INTRASPINAL MORPHINE SCH (07:15)
[2024-04-13] MEDS ORDERED: NO NARCOTICS OR SEDATIVES SCH (07:15)
[2024-04-13] MEDS: CITRIC ACID/SODIUM CITRATE 15 ML UDC PO SCH (07:16)
--- NOTE | 2024-04-13 07:51 | History & Physical Bridge Note ---
Date of Service April 13, 2024 History & Physical Bridge Note I have examined the patient, reviewed the History & Physical and in the interval since the performance of the History & Physical I have noted the following changes of clinical significance: no changes noted
[2024-04-13] MEDS ORDERED: PHENYLEPHRINE 100MCG/ML 5ML SYR ONE (08:21)
[2024-04-13] MEDS ORDERED: ceFAZolin 330 MG/ML 1 GM VIAL ONE (08:21)
[2024-04-13] MEDS ORDERED: METHYLERGONOVINE MALEATE 0.2 MG/ML AMP ONE (08:35)
[2024-04-13 09:03] LABS: Base Excess Cord Venous Blood -2.7 mEq/L (-7.7-1.9); Cord Venous Blood HCO3 25 mmol/L (18.4-26.8); Cord Venous Blood PCO2 51 mmHg (30.4-57.2); Cord Venous Blood PO2 24 mmHg (14.1-43.3); Cord Venous Blood pH 7.29 (7.20-7.44); O2 Saturation Cord Venous Bld < 60.0 % (<68)
[2024-04-13 09:04] LABS: Base Excess Cord Arterial Bld -5.9 mEq/L (-9-1.8); CO2 Cord Arterial Blood 75 mmHg (39.1-73.5); HCO3 Cord Arterial Blood 25 mmol/L (19.7-28.5); Oxygen Sat Cord Arterial Blood < 60.0 % (<60); PO2 Cord Arterial Blood < 20 mmHg (4.1-31.7); pH Cord Arterial Blood 7.13 (7.1-7.38)
[2024-04-13] MEDS ORDERED: OXYTOCIN 10 UNITS/ML 10ML VIAL IM ONE (09:15)
[2024-04-13] MEDS ORDERED: diphenhydrAMINE Capsule 25 MG CAP PO PRN (09:30)
[2024-04-13] MEDS ORDERED: MAGNESIUM HYDROXIDE SUSP 30 ML UDC PO PRN (09:30)
[2024-04-13] MEDS ORDERED: BENZOCAINE 20% SPRY 85 APPLN/85 GM CAN EXT PRN (09:30)
[2024-04-13] MEDS ORDERED: DIPHTHER/TETAN/PERTUS Vaccine (Tdap, Adol/Adult) 0.5mL IM ONE (09:30)
[2024-04-13] MEDS ORDERED: SENNA 8.6 MG TAB PO PRN (09:30)
[2024-04-13] MEDS: KETOROLAC 30 MG/ML VIAL ONE (09:30)
[2024-04-13] MEDS ORDERED: HYDROCORTISONE ACETATE 25 MG SUPP PR PRN (09:30)
[2024-04-13] MEDS ORDERED: CALCIUM CARBONATE 500 MG CHEWABLE TAB PO PRN (09:30)
[2024-04-13] MEDS ORDERED: KETOROLAC 30 MG/ML VIAL IV SCH (09:30)
--- NOTE | 2024-04-13 10:10 | Anesthesiology Progress Note ---
Date of Service April 13, 2024 Anesthesia Post Procedure Vital Signs Vital Signs: Temp Pulse Resp BP Pulse Ox 04/13/24 10:06 81 97 04/13/24 10:04 36.7 C 18 04/13/24 10:01 108 H 133/62 94 04/13/24 09:57 73 102/57 L 04/13/24 09:56 73 97 04/13/24 09:51 84 99 04/13/24 09:46 84 98 04/13/24 09:41 96 04/13/24 09:41 102 H 04/13/24 09:41 103 H 117/74 04/13/24 09:36 79 98 04/13/24 09:31 78 98 04/13/24 09:30 36.7 C 16 04/13/24 09:27 86 113/56 L 04/13/24 09:26 95 H 98 04/13/24 07:45 16 04/13/24 07:45 36.6 C 16 04/13/24 07:09 81 122/69 04/13/24 06:02 36.5 C 18 04/13/24 05:45 80 117/71 Transfer of Care Handoff Completed per policy Notes Mental Status: alert / awake / arousable and participated in evaluation Patient Amnestic to Procedure: Yes Nausea / Vomiting: adequately controlled Pain: adequately controlled Airway Patency, RR, SpO2: stable & adequate BP & HR: stable & adequate Hydration State: stable & adequate Neuraxial Anesthesia: was administered and sensory block is resolving Anesthetic Complications: no major complications apparent and Pt Satisfied with anesthetic care
--- NOTE | 2024-04-13 10:13 | Operative Report ---
Post Operative Report Pre & Post Diagnosis Operation Date: 04/13/24 07:30 Pre-Op Diagnosis: Prior section. Desires repeat section. Post-Op Diagnosis: Prior section. Desires repeat section. Delivery of live female child at 0832. I identified the patient and participated in the time-out.: Yes Procedure Operation Date: 04/13/24 07:30 Actual Procedures p Repeat Section, lower transverse uterine incision, delivery of live female child at 0832 - Issac Gupta MD Surgeon Issac Gupta MD Vocational Examiner [place] Estimated Blood Loss 1,090 (QBL) Findings Consistent with Post-Op Diagnosis Nml female escutcheon. Nml gravid uterus and tubes. Moderate adhesions Fluids QBL; 1090ml IVF; 1600ml Urine; 100ml Specimens Placenta and cord gasses Drains none Anesthesia Type Spinal Complications none Indications Prior c/sec pt request Repeat c/sec Description of Procedure Patient brought to the operating room Prepped and draped in normal sterile fashion in dorsal supine position with a leftward tilt. Time out is performed. Patient is identified by name and date of . Allergy and antibiotics and reviewed and confirmed. Skin check is performed to see if anesthesia is adequate A Pfannenstiel incision is made and carried out to the fascia with a scalpel. Fascia is incised in the midline extended laterally on both sides with Bauman scissors. Kelly's were used to grab the superior part of the fascial incision and the rectus abdominis muscle dissected with Bauman scissors.. Same procedure was performed on the lower section of the fascia. The rectus muscle is then in the midline and the peritoneum identified, tented up and entered sharply with the Metzenbaum scissors. The peritoneal incision was then extended superiorly and inferiorly with good visualization of the bladder. An Miguelito retractor was then inserted to provide better visualization and retraction. Vesicouterine peritoneum was identified, grasped with pickups and entered sharply with Metzenbaum scissors. The incision was then extended laterally and the bladder flap created with Metzenbaum scissors. The lower uterine segment incision was performed in a transverse fashion with a scalpel. Uterine incision was then extended laterally with the bandage scissors. Amniotomy is performed. Amniotic fluid is clear The infant's head was delivered atraumatically. There is no nuchal cord. Nose and mouth suctioned with the bulb suction. Delayed cord clamping performed and cord is then clamped and cut and is handed over to the waiting pediatric team. Cord blood and gases obtained The placenta is then removed manually the uterus is exteriorized and cleared of all clots and debris. Uterine incision it repaired with 0-Vicryl in a locking fashion. A second layer of 0-Vicryl is used to obtain excellent hemostasis. Uterus is placed back into the abdominal cavity. The bladder flap was repaired in a running fashion with plain suture. Copious amount of irrigation was used to irrigate the abdomen. Gutters were cleared of all clots and debris . Hemostasis was obtained. The Miguelito retractor is removed as well as sponges or instruments in the abdomen. The peritoneum was identified and closed in a running fashion using plain suture. The rectus abdominis muscle was examined to ensure there no bleeding. Fascia is closed together using 0- Vicryl suture. Subcutaneous space is irrigated and hemostasis was confirmed. Subcutaneous space is approximated with plain suture. Skin is closed with [place]. The patient tolerated procedure well sponge just labs needle counts were correct x2 patient is sent to recovery in stable condition I attest to the content of the Intraoperative Record and any orders documented therein. Any exceptions are noted below. Vocational Examiner was necessary for retraction and manipulation of instruments in order to provide for a safe operation
[2024-04-13] MEDS: PROMETHAZINE 12.5 MG/50.5 ML BAG IV PRN (10:27)
[2024-04-13] MEDS: OXYTOCIN 20 UNITS/LR 1,002 ML IV SCH (11:30)
--- OUTSIDE RECORDS SUMMARY | 2024-04-13 11:52 | External Medical Summary | Summary of Care ---
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 Name Role Phone Unavailable Primary Care Provider Unavailabl e Reason for Visit * Reason Comments Return Visit Encounter Details Date Type Department Care Team (Late st Contact Info) Description 04/09/2024 12:00 PM EST Office Visit Gynecology/Obstetric s [address] [place] [address] Chastity Smith CRNP [address] [place] [address] Normal in third trimester*; Obesity in , antepartum; Previous delivery, antepartum condition or complication Allergies Active Allergy Reactions Criticality Noted Date Comments Latex Rash 04/15/2014 documented as of this encounter (statuses as of 04/09/2024) Medications Adult Gummy/DHA/FA 0.4-25 MG Oral Tablet Chewable Take by mouth. Active Iron 325 (65 Fe) MG Oral Tablet Take by mouth. Active documented as of this encounter (statuses as of 04/09/2024) Active Problems Problem Noted Date Diagnosed Date Normal 09/12/2023 Obesity in , antepartum 09/12/2023 Overview (10/11/2023): Class 1 The patient's pre-gravid BMI is 30.88. Early GTT normal Previous delivery, antepartum condition or complication 09/12/2023 Tobacco use disorder 07/31/2013 Estimated Date of Delivery Comme nts Yes 04/20/2024 Based on last me nstrual period of 07/15/2023 documented as of this encounter (statuses as of 04/09/2024) Resolved Problems Problem Noted Date Diagnosed Date Resolved Date Carrier of group B Streptococcus 06/03/2021 07/03/2021 Antepartum anemia complicating 03/31/2021 07/03/2021 Supervision of normal first , antepartum 11/10/2020 07/03/2021 Contraception 07/14/2016 12/21/2016 Overview (07/14/2016): Nexplanon caused sadness. Condoms now. Neck pain 05/06/2015 06/14/2018 Contraceptive surveillance 12/08/2011 0 06/08/2021 Chronic rhinitis 03/24/2004 06/14/2018 Routine child health exam 02/16/2002 Thunderclap headache 019 documented as of this encounter (statuses as of 04/09/2024) Immunizations Name Administration Dates Next Due HPV Vaccine, 4-Valent 06/14/2007,02/06/2007,11/23 Meningococcal Conjugate Vacc ine (Menactra/Menveo) 05/19/2011 Pneumococcal Polysaccharide PPV23 (Pneumovax) 07/31/2013 Seasonal Influenza Vac., MDV , IM, 0.5 mL (Fluzone) 01/23/2015,02/08/2014,03/09/2013,01/27,03/25/2010,02/07/2007 Seasonal Influenza, PF, 6 M & above, IM , (FluLaval or Fluzone) 06/01/2020 Seasonal Influenza, Quadriva lent, No Preserve, IM 03/09/2023,02/24/2019,02/23/2018,03/09 TDAP, Age 7 and older, IM (Adacel) 02/13/2024, Varicella Vaccine (Chicken Pox) 06/25/2008 documented as of this encounter Social History Tobacco Use Types Packs/Day Years Used Date Smoking Tobacco: Former Cigarettes 0.2 5 Smokeless Tobacco: Never Comments:5 per day Alcohol Use Standard Drinks/Week Comments Not Currently 0 (1 standard drink = 0.6 oz pur e alcohol) occ PHQ-2 Answer Date Recorded PHQ-2 Score 0 09/01/2018 Hunger Vital Sign Answer Date Recorded Within the past 12 months, y ou worried that your food would run out before you got the money to buy more. Never true 09/12/19 24 Within the past 12 months, t he food you bought just didn't last and you didn't have money to get more. Never true 09/12/2023 Velarde Depression Scale Answer Date Recorded Velarde Depression Scale Total 5 09/12/2023 The thought of harming myself has occurred to me . Never 09/12/2023 Childcare Answer Date Recorded Do you feel overwhelmed with taking care of a child, family member or friend? No 09/12/2023 Does your family need help f inding childcare? (Household - for ages 0-17 years) Not on file 09/12/2023 Clothing Answer Date Recorded Have you been unable to get clothing when it was really needed? No 09/12/2023 Is your family able to get c lothes or diapers when needed? (Household - for ages 0-17 years) Not on file 09/12/2023 Personal Safety Answer Date Recorded Do you feel unsafe or have concerns for your saf ety? No 09/12/2023 Do you have concerns for you r family's safety? (Household - for ages 0-17 years) Not on file 09/12/2023 Utilities Answer Date Recorded Do you have trouble paying y our heating, water, or electric bill? No 09/12/2023 Is your family able to pay t he heat, water, or electric bill? (Household - for ages 0-17 years) Not on file 09/12/2023 Does your family have access to good internet? (Household - for ages 0-17 years) Not on file 09/12/2023 Employment Status Answer Date Recorded Are you unemployed or without regular income? No 09/12/2023 Does the household have a re gular source of income? (Household - for ages 0-17 years) Not on file 09/12/2023 Social Connections Answer Date Recorded How often do you feel lonely or isolated from th ose around you? Never 09/12/2023 Financial Resource Strain Answer Date R ecorded Do you have any trouble payi ng for your medications, or do you think you might in the future? No 09/12/2023 Does your family have troubl e paying for medicine? (Household - for ages 0-17 years) Not on file 09/12/2023 Transportation Needs Answer Date Record ed READ ONLY Do you have troubl e getting a ride to medical visits or work? Never True 09/12/2023 Does your family have a hard time getting a ride to doctors visits? (Household - for ages 0-17 years) Not on file 09/12/2023 Has lack of transportation k ept you from medical appointments, meetings, work, or from getting things needed for daily living? Check all that apply. (Adult - for ages 18 years and over) Not on file 09/12/2023 Do you (or your family) have trouble finding or paying for a ride (transportation)? (Household - for ages 0-17 years) Not on file 09/12/2023 Housing Stability Answer Date Recorded Do you currently live in a s helter or have no steady place to sleep at night? No 09/12/2023 READ ONLY Do you think you a re at risk of becoming homeless? No 09/12/2023 Does your family worry about paying for your home or becoming homeless? (Household - for ages 0-17 years) Not on file 0 09/12/2023 Are you homeless or worried that you might be in the future? (Adult - for ages 18 years and over) Not on file Are you (or your family) eugenia eless or worried that you might be in the future? (Household - for ages 0-17 years) Not on file Food Insecurity Answer Date Recorded Do you need food for this week? No 09/12/2023 Are you able to get enough f ood for your family? (Household - for ages 0-17 years) Not on file 09/12/2023 Does your family need food t his week? (Household - for ages 0-17 years) Not on file 09/12/2023 Do you always have enough fo od for your family? (Household - for ages 0-17 years) Not on file 09/12/2023 Estimated Date of Delivery Comme nts Yes 04/20/2024 Based on last me nstrual period of 07/15/2023 Sex and Gender Information Value Date Recorded Sex Assigned at Female 09/12/2023 9:39 AM EDT Legal Sex Female 6:04 AM EST Gender Identity Female 09/12/2023 9:39 AM EDT Sexual Orientation Straight 09/12/2023 9: 39 AM EDT documented as of this encounter Last Filed Vital Signs Vital Sign Reading Time Taken Comments Blood Pressure 126/70 04/09/2024 12:07 PM EST Pulse - - Temperature - - Respiratory Rate - - Oxygen Saturation - - Inhaled Oxygen Concentration - - Weight 103.4 kg (228 lb) 04/09/2024 12:07 PM EST Height 162.6 cm (5' 4") 04/09/2024 12:07 PM EST Body Mass Index 39.14 04/09/2024 12:07 PM EST documented in this encounter Progress Notes * Chastity Smith CRNP - 04/09/2024 12:16 PM EST 38w3d Was at L&D yesterday evening with concerns of HTN. BP at home was high. Was fine at the hospital. She reports NST was done and fine as well. Prior to her trip to L&D she noticed a gush of fluid after getting out of the bathtub. She has not had any change in vaginal discharge since then. Not changing clothing, not wearing a pad. Discussed this was likely bath water, not amniotic fluid. She states that baby has never moved a lot, though no difference today from her baseline. Denies bleeding. Has c/s on Tuesday. ONEYDA Barkley documented in this encounter Nursing Notes * Adrianna Watters LPN - 04/09/2024 12:02 PM EST 38w3d Was in er and L&D yesterday [place] funny BP was high Pt would like cervix checked Pt felt a gush yesterday after getting out of tub and told er pt was not checked at hospital documented in this encounter Plan of Treatment Upcoming Encounters Date Type Department Care Team (Late st Contact Info) Description 04/20/2024 1:00 PM EST Office Visit Gynecology/Obstetrics Brenda Dahl [address] [place] [id number] Issac Gupta MD [address] [place] [id number] Health Maintenance Due Date Last Done Comments Depression Screening 09/02/2019 09/01/2018 HPV/Co-Test 2022 COVID-19 Vaccine ( season) 2023 09/18/2020, 08/23/2020 Influenza Vaccine (FLU shot) (#1) 2023 03/09/2023, 06/01/2020, 06/01/2020, Additional history exists Cervical Cancer Screening 08/03/2024 Pap Smear 08/03/2024 08/03/2021, 07/24, 04/28/2015, Additional history exists DTap/Tdap Vaccines (9 - Td or Tdap) 02/12/2034 02/13/2024, 03/09/2021, 06/27/2009, Additional history exists HPV (Gardasil) Vaccine Completed 8, 02/06/2007, 12/05/2006 MENINGOCOCCAL (MENACTRA/MENVEO) Completed 05/16/2012, 05/19/2011, 05/19/2011, Additional history exists Hepatitis B Vaccine Completed 07/17/2012, 05/16/2012, 06/16/1993, Additional history exists Pneumococcal Vaccine: Pediatrics (0 to 5 Years) and At-Risk Patients (6 to 64 Years) Aged Out 07/31/2013 No longer eligible based on patient's age to complete this topic documented as of this encounter Goals Goal Patient Goal Type Associated Problems Recent Progress Patient-Stated? 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
[2024-04-13] MEDS ORDERED: Nursing to Pharmacy Communication SCH (12:15)
[2024-04-13] MEDS: SIMETHICONE 80 MG CHEW PO SCH (13:21)
[2024-04-13] MEDS: ACETAMINOPHEN 325 MG TAB PO SCH (16:08)
[2024-04-13] MEDS: KETOROLAC 30 MG/ML VIAL IV SCH (16:09)
[2024-04-13] MEDS: DOCUSATE SODIUM 100 MG CAP PO SCH (22:02)
[2024-04-14 00:34] VITALS: O2SAT 98
[2024-04-14 07:21] LABS: Basophils # (auto) 0.04 K/uL (0.00-0.20); Basophils % (auto) 0.3 %; Eosinophils # (auto) 0.06 K/uL (0.00-0.50); Eosinophils % (auto) 0.4 %; Hematocrit (blood only) 27.1 % (37.0-47.0); Hemoglobin 9.3 g/dl (12.0-16.0); Immature Granulocytes # (auto) 0.08 K/uL (0.01-0.20); Immature Granulocytes % (auto) 0.6 %; Lymphocytes # (auto) 2.78 K/uL (1.20-3.40); Lymphocytes % (auto) 20.6 %; Mean Corpuscular Hemoglobin 31.1 pg (25.0-34.0); Mean Corpuscular Hgb Conc 34.3 g/dL (32.0-36.0); Mean Corpuscular Volume 90.6 fL (80.0-100.0); Mean Platelet Volume 12.3 fL (9.4-12.4); Monocytes # (auto) 1.19 K/uL (0.11-0.59); Monocytes % (auto) 8.8 %; Neutrophils # (auto) 9.33 K/uL (1.40-6.50); Neutrophils % (auto) 69.3 %; Platelet Count 100 K/uL (130-400); RDW Coefficient of Variation 14.1 % (11.5-14.5); RDW Standard Deviation 46.5 fL (36.4-46.3); Red Blood Count 2.99 M/uL (4.20-5.40); White Blood Count 13.48 K/ul (4.8-10.8)
[2024-04-14] MEDS: FERROUS SULFATE 325 MG TAB PO SCH (09:04)
[2024-04-14] MEDS: PRENATAL VITAMIN 1 TAB PO SCH (09:04)
[2024-04-14] MEDS ORDERED: KETOROLAC 30 MG/ML VIAL IV PRN (09:30)
--- NOTE | 2024-04-14 09:30 | Obstetrical Progress Note ---
Date of Service April 14, 2024 Assessment & Plan (1) Postop check: Post op day #1 Pt joe well continue day #1 care Subjective Ambulation: ambulating normally Voiding: no voiding problems Passing Gas:: Yes Diet Tolerance:: clear liquids Lochia:: Small Feeding Type:: breast feeding Review of Systems All systems reviewed & are unremarkable except as noted in HPI & below Physical Exam Constitutional WD/WN, vitals as above well developed and well nourished Eyes PERRL, conjunctivae normal, anicteric sclerae ENMT external ear and nose normal, oropharynx normal Neck trachea midline, no thyromegaly Respiratory normal respiratory effort, lungs clear to auscultation Cardiovascular RRR, no murmur, no edema Chest (Breasts) normal inspection/palpation of breasts Gastrointestinal (Abdomen) normal bowel sounds, soft, nontender, no hepatosplenomegaly Musculoskeletal no cyanosis or clubbing, extremities motor strength 5/5 Skin no rashes, warm and dry + incision (Clean,dry and intact) Neurologic patellar DTR's 2+ bilat, sensation intact Psychiatric A+Ox3, euthymic affect Genitourinary normal external appearance Lymphatic no cervical or axillary lymphadenopathy Results & Data Vital Signs (Past 12 Hours) Vital Signs Temp Pulse Resp BP Pulse Ox O2 Del Method 04/14/24 04:15 36.8 C 76 20 112/66 98 Room Air 04/14/24 00:34 18 98 04/14/24 00:00 36.7 C 86 18 100/64 98 Room Air 04/13/24 23:45 18 96 04/13/24 22:45 20 96 04/13/24 21:46 18 96
[2024-04-14] MEDS: IBUPROFEN 600 MG TAB PO SCH (10:12)
[2024-04-14] MEDS: oxyCODONE HCL IR 5 MG TAB (IMMEDIATE RELEASE) PO PRN (17:23)
[2024-04-14] MEDS: bisacodyL 5 MG TABEC PO SCH (21:58)
[2024-04-15 06:58] LABS: Hematocrit (blood only) 28.9 % (37.0-47.0); Hemoglobin 9.5 g/dl (12.0-16.0)
--- NOTE | 2024-04-15 09:04 | Obstetrical Progress Note ---
Date of Service April 15, 2024 Assessment & Plan (1) Postop check: POD #2 Pt doing well d/c home with instructions Results & Data Vital Signs (Past 12 Hours) Vital Signs Temp Pulse Resp BP Pulse Ox O2 Del Method 04/15/24 01:27 102 H 14 117/76 Room Air 04/14/24 21:30 37.3 C 80 16 117/73 98 Room Air
[2024-04-15] MEDS ORDERED: bisacodyL 10 MG SUPP PR PRN (09:30)
[2024-04-15] MEDS ORDERED: IBUPROFEN 600 MG TAB PO PRN (09:30)
[2024-04-15] MEDS ORDERED: PERCOCET 5/325MG HOMEPACK PO ONE (09:43)
--- NOTE | 2024-04-15 09:45 | Discharge Summary ---
Date of Service April 15, 2024 Admission HPI Per Admitting Provider Repeat c/sec; Procedure in post op not Unremarkable post op course Disch home in stab;e condition Discharge Data Consultations 04/13/24 05:37 Consult Anesthesiology Stat Procedures Performed Operation Date: 04/13/24 07:30 Actual Procedures p Repeat Section, lower transverse uterine incision, delivery of live female child at 0832 - Issac Gupta MD
[2024-04-15 10:09] VITALS: BP 116/73; PULSE 96; RESP 18; TEMP 97.3
[2024-04-15] MEDS ORDERED: ACETAMINOPHEN 325 MG TAB PO PRN (15:30)
== END 2024-04-15 13:15 | disposition home or self-care (01) | DRG 788 ==
LOC: 4S1 05:31 → EDSTATUS 07:30 → 4E2 12:24